=== PATIENT | female | born 1965 | race Caucasian/White ===

== ENCOUNTER 2018-01-23 10:20 | Emergency (ER) | payer MEDICAID ==
[~2018-01-23] VITALS: Ht 157.5 cm; Wt 72.6 kg
[2018-01-23 10:33] VITALS: Ht 157.5 cm; Wt 72.6 kg
[2018-01-23 12:52] VITALS: BP 160/72
== END 2018-01-23 12:52 | disposition home or self-care (01) ==
LOC: ED 10:20
DX: S50.12XA Contusion of left forearm, initial encounter (principal); W20.8XXA Other cause of strike by thrown, projected or falling object, initial encounter; Y93.89 Activity, other specified; Y99.8 Other external cause status; Y92.89 Other specified places as the place of occurrence of the external cause